=== PATIENT | male | born 1985 | race Caucasian/White ===

== ENCOUNTER 2022-02-11 14:32 | Emergency (ER) | payer MEDICAID ==
[~2022-02-11] VITALS: Ht 188 cm; Wt 131.8 kg
[2022-02-11] MEDS ORDERED: HYDROCODONE/ACETAMINOPHEN 5-325 MG TABLET PO ONE (15:30)
[2022-02-11] MEDS ORDERED: KETOROLAC TROMETHAMINE 60 MG/2 ML VIAL IM ONE (18:30)
[2022-02-11 18:40] VITALS: BP 160/93
[2022-02-11] MEDS ORDERED: TRAM50TA4 PO (18:41)
== END 2022-02-11 18:55 | disposition home or self-care (01) ==
LOC: EDSEX 14:38 → EMS 14:38
DX: S20.212A Contusion of left front wall of thorax, initial encounter (principal); W10.9XXA Fall (on) (from) unspecified stairs and steps, initial encounter; Y93.89 Activity, other specified; Y92.89 Other specified places as the place of occurrence of the external cause; Y99.8 Other external cause status
CPT/HCPCS: 71101; 96372; 99283; J1885